=== PATIENT | female | born 1980 | race Caucasian/White ===

== ENCOUNTER 2016-10-23 16:19 | Emergency (ER) | payer OTHER ==
[~2016-10-23] VITALS: Ht 165.1 cm; Wt 82.5 kg
[~2016-10-23 16:19] MED LIST: HYDR-3498 PO; IBUP-1542 PO
[2016-10-23 16:25] VITALS: Ht 165.1 cm; Wt 82.5 kg
[2016-10-23] MEDS ORDERED: KETOROLAC 30 MG INJ IM STA (16:59)
[2016-10-23] MEDS ORDERED: ONDANSETRON (ODT) 4 MG TAB ODT STA (17:38)
[2016-10-23] MEDS ORDERED: HYDROCODONE/APAP (5/325) TAB PO STA (21:03)
--- NOTE | 2016-10-23 21:18 | RADRPT ---
PROCEDURE: MR Lumbar Spine. CLINICAL INDICATION: Cauda equina syndrome TECHNIQUE: An MRI of the lumbar spine was performed utilizing the following sequences: Sagittal T 1 weighted, axial proton density, sagittal and axial T2 weighted, and sagittal T2 inversion recovery COMPARISON: None available FINDINGS: There is a lumbar dextroscoliosis. No vertebral body subluxation is seen. Vertebral body heights a re maintained. Marrow signal appears normal. There is a minimal disk space narrowing from L1-L2 th rough L4-5.. The conus medullaris is visible at the L1 level and appears grossly normal. L1-L2: There is no disk bulge or protrusion. There is no facet hypertrophy. There is no central c anal or neural foraminal stenosis. L2-L3: There is no disk bulge or protrusion. There is no facet hypertrophy. There is no central c anal or neural foraminal stenosis. L3-L4: There is no disk bulge or protrusion. There is minimal bilateral facet hypertrophy. There is no central canal or neural foraminal stenosis. L4-L5: There is no disk bulge or protrusion. There is mild bilateral facet hypertrophy. There is no central canal stenosis. There is minimal bilateral neural foraminal stenosis. L5-S1: There is no disk bulge or protrusion. There is mild bilateral facet hypertrophy. There is no central canal or neural foraminal stenosis. There is no abnormal paravertebral soft tissue mass. IMPRESSION: 1. Lumbar dextroscoliosis. 2. Mild facet hypertrophy at L4-5 and L5-S1. 3. Minimal bilateral foraminal stenosis at L4-5. 4. No significant disk protrusion or extrusion. No central canal stenosis. RPTAT: HBST .Trevor Quinones MD, MD Date Time Electronically viewed and signed by .Trevor Quinones MD, MD on 10/23/2016 21:18 .T/
[2016-10-23] MEDS ORDERED: CYCL-319 PO (21:29)
[2016-10-23] MEDS ORDERED: NAPR-260 PO (21:29)
[2016-10-23 21:45] VITALS: BP 137/87; PULSE 63; RESP 16; TEMP 98.7
--- NOTE | 2016-10-23 23:16 | ERD ---
ER Documentation Chief Complaint Date/Time DATE: 10/23/16 TIME: 23:14 Chief Complaint PT with back pain Radiating to R leg x 5 days. dx with herniated disc L4-5 HPI This is a 36-year-old female presenting to the emergency department complaining of lumbar back pain that radiates down her right leg for the past 5 days. Patient states that she has a herniated disc that she was diagnosed about a year ago. Patient states the pain is 10 out of 10. She states she took Tylenol at noon without much relief. Patient states that she has had loose stools and had a couple episodes of urinating herself yesterday. She denies any genital numbness ROS All systems reviewed and are negative except as per history of present illness. Medications Home Meds Active Scripts Cyclobenzaprine Hcl* (Cyclobenzaprine Hcl*) 10 Mg Tablet, 10 MG PO TID, #30 TAB Prov:STIVEN DRAKE PA-C 10/23/16 Naproxen* (Naprosyn*) 500 Mg Tablet, 500 MG PO BID Y for PAIN AND/OR INFLAMMATION, #30 TAB Prov:STIVEN DRAKE PA-C 10/23/16 Hydrocodone Bit-Acetaminophen* ([place]*) 5-325 Mg Tab, 1 TAB PO Q6 Y for PAIN, # 7 TAB Prov:RIVERA ANN MD 04/27/15 Ibuprofen* (Motrin*) 600 Mg Tab, 600 MG PO Q6H Y for PAIN AND OR ELEVATED TEMP, #30 TAB Prov:RIVERA ANN MD 04/27/15 Allergies Allergies: Coded Allergies: No Known Drug Allergy (Verified Allergy, Unknown, 10/23/16) PMhx/Soc History of Surgery: No Anesthesia Reaction: No Hx Neurological Disorder: No Hx Respiratory Disorders: No Hx Cardiac Disorders: No Hx Psychiatric Problems: No Hx Miscellaneous Medical Probl: Yes (HERNIATED DISC L4-L5) Hx Alcohol Use: No Hx Substance Use: No Hx Tobacco Use: No Physical Exam Vitals Vital Signs Date Time Temp Pulse Resp B/P Pulse Ox O2 Delivery O2 Flow Rate FiO2 10/23/16 21:45 98.7 63 16 137/87 98 Room Air 10/23/16 16:25 98.7 106 18 138/92 98 Physical Exam GENERAL: WD/WN, in no apparent distress, non-toxic appearing HENT: NC/AT EYES: Conjunctiva normal NECK: Supple PULM: Normal labored breathing CV: Good capillary refill GI: Non-distended, no guarding BACK: no deformities noted, normal spinal curvature, TTP on lumbar region, tender on spine midline, EXT: No clubbing, cyanosis, or edema NEURO: Moves on all fours, sensation intact, normal gait SKIN: intact PSYCH: Normal mood Results 24 hrs Current Medications Medications (Trade) Dose Ordered Sig/Anika Route PRN Reason Start Time Stop Time Status Last Admin Dose Admin Ketorolac Tromethamine (Toradol) 30 mg ONCE STAT IM 10/23/16 16:59 10/23/16 17:03 DC 10/23/16 17:35 Ondansetron HCl (Zofran Odt) 4 mg ONCE STAT ODT 10/23/16 17:38 10/23/16 17:40 DC 10/23/16 17:41 Acetaminophen/ Hydrocodone Bitart ([place] (5/325)) 2 tab ONCE STAT PO 10/23/16 21:03 10/23/16 21:04 DC 10/23/16 21:28 Procedures/MDM This is a 36-year-old female presenting to the emergency department complaining of right lumbar back pain that radiates down her leg which is likely due to a muscle strain. There was a questionable bladder and bowel incontinence therefore an MRI was ordered, radiologist stated - 1. Lumbar dextroscoliosis. 2. Mild facet hypertrophy at L4-5 and L5-S1. 3. Minimal bilateral foraminal stenosis at L4-5. 4. No significant disk protrusion or extrusion. No central canal stenosis. Low suspicion for cauda equina syndrome. In the ED patient was given [place] and Toradol, she had some improvement. Patient is neurovascular intact and stable to be discharged home to follow-up with a refill and physical therapist. Prescription for naproxen and Flexeril was provided. Discussed return of the ER for any worsening sinus symptoms. Patient understands and agrees with plan Departure Diagnosis: Primary Impression: Back pain Condition: Stable Patient Instructions: Back Pain (Acute Or Chronic), Back Pain W/ Sciatica Referrals: [facility] (PCP) Additional Instructions: FOLLOW UP WITH YOUR PRIMARY CARE PHYSICIAN TOMORROW.Return to this facility if you are not improving as expected. Take all medicines as directed. You have been given a medicine which may cause drowsiness.DO NOT DRIVE OR OPERATE DANGEROUS MACHINERY while taking this medicine! Return to this facility if you are not improving as expected. STIVEN DRAKE PA-C Oct 23, 2016 23:16
== END 2016-10-23 21:46 | disposition home or self-care (01) ==
LOC: FTE 16:19
DX: M54.5 Low back pain (principal)
CPT/HCPCS: 72148; 96372; J1885; Z7502; Z7610